=== PATIENT | female | born 1945 | race Caucasian/White ===

== ENCOUNTER 2021-07-25 18:32 | Emergency (ER) | payer OTHER ==
[2021-07-25] MEDS ORDERED: DIPHTH,PERTUSS(ACELL),TET 0.5 ML DISP.SYRIN IM ONE ×2 (18:40→19:27)
[2021-07-25] MEDS ORDERED: ACETAMINOPHEN 500 MG TABLET (FP) PO ONE (18:50)
[2021-07-25 18:55] VITALS: BP 148/77; PULSE 77; TEMP 98.3; BMI 20.2
[2021-07-25] MEDS ORDERED: ACETAMINOPHEN 500 MG TABLET (FP) ONE (19:26)
== END 2021-07-25 21:33 | disposition home or self-care (01) ==
LOC: FER 18:32
PROC: 3E0234Z Introduction of Serum, Toxoid and Vaccine into Muscle, Percutaneous Approach (ICD-10-PCS; principal; 2021-07-25)
DX: M79.661 Pain in right lower leg (principal); M79.662 Pain in left lower leg; Z29.14 Encounter for prophylactic rabies immune globulin
CPT/HCPCS: 90471; 90715; 93970-TC; 99284-25